=== PATIENT | male | born 2000 | race Caucasian/White ===

== ENCOUNTER 2022-04-04 19:54 | Emergency (ER) | payer BC, SELFPAY ==
[2022-04-04 20:45] VITALS: BP 110/73; PULSE 92; RESP 16; TEMP 37.2; O2SAT 97; BMI 27.2
--- NOTE | 2022-04-04 22:15 | ED_ITS ---
HPI - General Adult General Time Seen by Provider: 22:00 Date Seen: 04/04/22 Chief complaint: Skin/Abscess/Foreign Body Stated complaint: cyst causing pain under arm Time Seen by Provider: 04/04/22 22:12 Source: patient Mode of arrival: ambulatory Limitations: no limitations History of Present Illness HPI narrative: 21-year-old who comes in with swelling under his right arm for the last 4 days. Started as a pimple got progressively bigger. He has not been doing anything for this. He is taking Tylenol and ibuprofen. No fever, chills, nausea, vomiting. Denies any history of diabetes or other medical problems. Exam Narrative: Exam Narrative: General: Well-developed and well-nourished, no acute distress Head: Atraumatic and normocephalic Eyes: Pupils are equal reactive, extraocular motions intact, conjunctiva clear ENT: External nose and ears are normal, posterior pharynx without erythema or exudate Neck: No midline cervical tenderness, full spontaneous range of motion the neck, trachea midline, no adenopathy Heart: Regular rate and rhythm no murmurs or thrills Lungs: Clear to auscultation bilaterally without wheezes or crackles Abdomen: Soft, nontender, nondistended with active bowel sounds Musculoskeletal: No tenderness, deformity, or edema Neurologic: Awake, alert, and oriented x3, no gross focal neurologic deficits, cranial nerves intact as tested Psych: Mood and affect are appropriate Skin: 3 cm area of swelling and induration of the right axilla with erythema tracking to the mid upper arm Const: Vital Signs, click to edit/add: Vital Signs - 24 hr 04/04/22 20:45 Temperature 99.0 F Pulse Rate [Pulse Oximeter] 92 Respiratory Rate 16 Blood Pressure [Le ft Upper Arm] 110/73 Pulse Oximetry 97 Oxygen Delivery Me thod Room Air Documenting provider has reviewed patient's vital signs: yes Course Course Hospital Course: Patient seen and examined, prior records are reviewed. Patient with patient swelling, redness, warmth of the right axilla going to the mid upper arm. No associated systemic symptoms. Symptoms are most consistent with abscess. Vital Signs Vital signs: Initial Vital Signs Temperature 99.0 F 04/04/22 20:45 Temperature Source Temporal Artery Scan 04/04/22 20:45 Pulse Rate 92 04/04/22 20:45 Pulse Rhythm 04/04/22 20:45 Respiratory Rate 16 04/04/22 20:45 Blood Pressure 110/73 04/04/22 20:45 Blood Pressure Mean 85 04/04/22 20:45 Blood Pressure Position Sitting 04/04/22 20:45 Pulse Oximetry 97 04/04/22 20:45 Oxygen Delivery Method 04/04/22 20:45 Vital Signs Temperature 99.0 F 04/04/22 20:45 Pulse Rate 92 04/04/22 20:45 Respiratory Rate 16 04/04/22 20:45 Blood Pressure 110/73 04/04/22 20:45 Pulse Oximetry 97 04/04/22 20:45 Oxygen Delivery Method 04/04/22 20:45 Temperature 99.0 F 04/04/22 20:45 Pulse Rate 92 04/04/22 20:45 Respiratory Rate 16 04/04/22 20:45 Blood Pressure 110/73 04/04/22 20:45 Pulse Oximetry 97 04/04/22 20:45 Oxygen Delivery Method 04/04/22 20:45 Discharge Plan Discharge Clinical Impression: Cellulitis and abscess of upper extremity, Abscess of axilla, right Patient Disposition: Home, Self-Care Condition: Stable Instructions: Abscess Incision and Drainage (DC) Additional Instructions: Remove packing tomorrow and leave open to drain Take antibiotics as prescribed. Tylenol and ibuprofen as needed for pain. You may apply cool packs as desired. Follow-up with Dr. Solitario, general surgery on . The clinic will call you to schedule. Activity Level: No Restrictions Discharge Diet: Regular Stand Alone [facility] Inst[facility] Procedures I/D Type: abscess Site: other (Right axilla) Pre procedure diagnosis: Abscess and cellulitis Post procedure diagnosis: Same Written consent by: patient Site marking: not applicable Verification/time out: correct patient Name of person performing procedure: Isaias Cruz Anesthesia I&D: lidocaine 2% and with Epi Amount of anesthesia used (mls): 4 Side (if applicable): right Technique: incised with #11 blade (Single straight incision with copious purulent drainage, culture sent) Irrigation: No Packing used?: iodoform Estimated blood loss (if any): less than 5mls Conclusion: patient tolerated procedure
[2022-04-04] MEDS: DOXYCYCLINE HYCLATE 100 MG CAPSULE PO (22:49)
[2022-04-04] MEDS: OXYCODONE 5 MG TABLET PO (22:49)
[2022-04-04 23:09] VITALS: BP 110/73; PULSE 92; RESP 16; TEMP 37.2
--- NOTE | 2022-04-04 23:13 | ED.NURSE ---
Wasted Rocephin 1g and 2.1mL Lidocain 1% after med was drawn up d/t allergy. aware. Per Dr. Guzman, hold Rocephin IM. Okay to give Doxy. Instymed Rx for Augmentin cancelled. Dressing applied to wound.
== END 2022-04-04 23:09 | disposition home or self-care (01) ==
PROVIDERS: Emergency Provider Family Medicine
DX: L02.411 Cutaneous abscess of right axilla (principal); L03.112 Cellulitis of left axilla
CPT/HCPCS: 10060; 10061; 87070; 87186; 87205; 99282; 99283; A9270

== ENCOUNTER 2022-04-06 12:51 | Day surgery (SDC) | payer BC, SELFPAY ==
[2022-04-06] VITALS (10 sets, daily range): BP systolic 87–138; BP diastolic 47–91; PULSE 52–70; RESP 10–16; TEMP 36.3–36.8; O2SAT 88–100; BMI 26.3
[2022-04-06] MEDS: LACTATED RINGERS 1000 ML 1,000 ML 100 ML IV (13:00)
[2022-04-06] MEDS: SODIUM CHLORIDE 0.9 % (FLUSH) 10 ML SYRINGE IVF (13:26)
[2022-04-06] MEDS: lidocaine HCL 2 % MULTIDOSE 20 ML VIAL INJECTION (14:21)
[2022-04-06] MEDS: BUPIVACAINE 0.5% 30 ML INJECTION (14:21)
--- NOTE | 2022-04-06 14:38 | PM.GSPRC ---
Operative Note Date of procedure: 04/06/22 Type of Procedure: Irrigation and debridement right axillary abscess Procedure Description: After discussing the risks and benefits of the procedure, the patient signed informed consent.? The operative site was marked and the patient was brought to the operating room and placed on the operating table in supine position.? Care was taken to pad the patient's pressure points.?? The patient was then intubated by anesthesia.?? The operative site was then prepped and draped in the usual sterile fashion.? A time-out was then performed. Local anesthetic was used to infiltrate the surgical field. Evidence on examination of a 1 mm incision. A mosquito was used to open the incision and inspect the underlying cavity. A moderate amount of milky serous fluid was evacuated. The cavity measured 3 cm x 2 cm x 2 cm in size. The incision was then extended a laterally to allow for adequate debridement and drainage. The cavity was gently irrigated with normal saline. All necrotic fat was gently debrided. Hemostasis was assured with pressure and electrocautery. The cavity was then packed with 1 in iodoform and an outer Mepilex dressing applied. On the medial aspect of the axilla was a prominent lymph node. No underlying fluid collection or undrained pocket of fluid appreciated. ? Sterile dressings were then applied. ? The patient was then woken and transported to the recovery area in stable condition. ? Findings: Right axillary abscess. Anesthesia: GETA and local Surgeon: Arlyn Solitario MD Estimated blood loss (mL): 5 Condition: stable Disposition: same day
--- NOTE | 2022-04-06 14:42 | P.GSCN_ITS ---
History of Present Illness Consult details Date Seen: 04/06/22 Consult date: 04/06/22 Narrative: Patient presents for wound follow-up. He was initially seen in the emergency department on 04/04/2022 for a 1 week history of worsening swelling under his right arm. At that time workup demonstrated an abscess, which was incised and drained at bedside. He was also prescribed an antibiotic, doxycycline. Since leaving the emergency department he did remove his packing yesterday. He has continued with an outer dressing. He reports continued severe pain to the right armpit with redness that is now extending down the arm. He has also noticed a new bulge just adjacent to where the abscess was. Denies any fevers or chills. He has had 1 episode similar to this in the past. No history of MRSA but mom does report that she has a history of chronic infections of the armpit. He is otherwise healthy. No history of diabetes. He does vape on a daily basis. Review of Systems Status of ROS: Reports: 10 or more systems reviewed and unremarkable except as noted in History and below [facility] Social History Smoking Status: Never smoker How often do you have a drink containing alcohol: never AUDIT-C Alcohol total score: 0 Non-prescribed substance use: denies use Caffeine: Yes Meds Home Medications and Allergies Allergies Allergy/AdvReac Type Severity Reaction Status Date / Time Penicillins Allergy Unknown Verified 04/06/22 13:06 Sulfa (Sulfonamide Allergy Unknown Verified 04/06/22 13:06 Antibiotics) cephalexin [From Keflex] Allergy Verified 04/06/22 13:06 Exam Narrative: Exam Narrative: General: Alert and oriented, no acute distress Respiratory: Equal breath rise bilaterally, maintained on room air. Clear breath sounds. CV: Regular rhythm rate Extremities: Right axillary erythema and induration, very tender to palpation. There was a small 1 mm opening that looks closed. No active purulent drainage noted at this time. The medial aspect of the axilla is a 2 cm lymph node which is very tender to the touch. Const: Vital Signs, click to edit/add: Vital Signs - 24 hr 04/06/22 13:09 Temperature 98.3 F Pulse Rate 55 L Respiratory Rate 16 Blood Pressure 115/59 L Pulse Oximetry 100 Oxygen Delivery Me thod Room Air Results Labs Labs: All other labs normal. Assessment and Plan Assessment and plan (1) Abscess of axilla, right: Status: Acute Plan Patient is a 21-year-old male with a right axillary abscess status post incision and drainage 2 days earlier. Given the increasing swelling and erythema, as well as evidence of closure at the previous incision site, I am concerned about an undrained infection. Risks and benefits of incision and drainage in the operating room were discussed at length with the patient. All questions and concerns were addressed with patient agreeing to proceed. He is currently on oral doxycycline. He will receive a dose of IV clindamycin preoperatively, recommend that he continue with doxycycline. His culture has grown Staph aureus and is sensitive. -OR for right axillary incision and drainage -continue oral doxycycline -follow-up in clinic next week for wound check
--- NOTE | 2022-04-06 14:55 | W.ANESCHARGE ---
Anesthesia Charges Start Date/Time Anesthesia Start Date: 04/06/22 Anesthesia Start Time: 14:06 Stop Date/Time Anesthesia Stop Date: 04/06/22 Anesthesia Stop Time: 14:53 Summary Emergency: Yes
--- NOTE | 2022-04-06 14:57 | W.ANESCHARGE ---
Anesthesia Charges Start Date/Time Anesthesia Start Date: 04/06/22 Anesthesia Start Time: 14:06 Stop Date/Time Anesthesia Stop Date: 04/06/22 Anesthesia Stop Time: 14:53 Summary Emergency: Yes
== END 2022-04-06 16:12 | disposition home or self-care (01) ==
PROVIDERS: Visit Provider Surgery
PROC: (CPT 10061; principal; 2022-04-06 14:10)
DX: L02.411 Cutaneous abscess of right axilla (principal); B95.61 Methicillin susceptible Staphylococcus aureus infection as the cause of diseases classified elsewhere
CPT/HCPCS: 10061; 400; 99140; J1100; J1885; J2250; J2405; J2704; J3010; J3490; J7120; S0077

== ENCOUNTER 2023-03-08 21:51 | Emergency (ER) | payer BC, SELFPAY ==
[2023-03-08 21:57] VITALS: BP 160/101; PULSE 111; RESP 16; TEMP 37.1; O2SAT 97; BMI 31.2
--- NOTE | 2023-03-08 22:20 | CRLHL7_ITS ---
For Patients: As a result of the Cures Act, medical imaging exams and procedure reports are released immediately into your electronic medical record. You may view this report before your referring provider. If you have questions, please contact your health care provider. INDICATION: Chest pain. TECHNIQUE: Chest radiographs, two views. COMPARISON: None. FINDINGS: Lines/Tubes/Devices: None. Mediastinum: Normal cardiac silhouette. Lungs: No focal consolidation. Pleura: No pleural effusions or pneumothorax. Bones: No acute osseous abnormalities. Upper Abdomen: Unremarkable. IMPRESSION: No acute cardiopulmonary process. Dictated by Roderick Sheets MD @ 03/08/2023 10:43:16 PM (Electronically Signed)
--- NOTE | 2023-03-08 22:30 | ED.CHESTPAIN ---
HPI - Chest Pain General Date Seen: 03/08/23 Chief Complaint: Chest Pain Stated Complaint: Chest tightness, left arm pain Time Seen by Provider: 03/08/23 22:05 Source: patient Mode of arrival: ambulatory Limitations: no limitations History of Present Illness HPI narrative: Patient is a 22-year-old male presenting emergency department for chest pain that radiates to his left arm. The symptoms have been intermittent for the past month and had a normal stress test 2 weeks ago. He states they are worse with exertion. Does state he has been very active in using his upper body quite a bit. Denies shortness of breath. No increase in pain with deep breaths. Denies fevers, chills, weakness, numbness, diarrhea, constipation, headache, vision changes. States this pain is sharp in nature and has been worse over the past few days making it hard to sleep. Has not taken anything for the pain. Related Data Home Medications Medication Instructions Recorded Confirmed melatonin 3 mg capsule 3 mg PO DAILY 03/08/23 03/08/23 Allergies Allergy/AdvReac Type Severity Reaction Status Date / Time Penicillins Allergy Unknown Verified 04/12/22 13:58 Sulfa (Sulfonamide Allergy Unknown Verified 04/12/22 13:58 Antibiotics) cephalexin [From Keflex] Allergy Verified 04/12/22 13:58 Review of Systems Status of ROS Reports: 10 or more systems reviewed and unremarkable except as noted in History and below [facility] Social History Smoking Status: Never smoker How often do you have a drink containing alcohol: never AUDIT-C Alcohol total score: 0 Non-prescribed substance use: denies use Caffeine: Yes Exam Narrative Exam Narrative: Const: Well-nourished, Well-developed, in mild distress Eyes: PERRL, no conjunctival injection, and symmetrical lids HENT: Atraumatic external nose and ears. Moist mucous membranes. Neck: Symmetric, trachea midline, No thyromegaly. CVS: RRR, No murmurs or gallops. Peripheral pulses 2+ and equal in all extremities RESP: Unlabored respiratory effort. Clear to auscultation bilaterally. GI: Nontender/Nondistended, No rebound or guarding. MSK:Extremities w/o deformity, Normal Active ROM Skin: Warm, Dry. No rashes or lesions. Neuro: Normal Muscle tone, No focal neurological deficits. Psych: Awake, Alert, & Oriented x3. Appropriate mood and affect. Const Vital Signs, click to edit/add: Vital Signs - 24 hr 03/08/23 21:57 Temperature 98.8 F Pulse Rate [Pulse Oximeter] 111 H Respiratory Rate 16 Blood Pressure [Right Upper Arm] 160/101 H Pulse Oximetry 97 Oxygen Delivery Method Room Air Course Vital Signs Vital signs: Initial Vital Signs Temperature 98.8 F 03/08/23 21:57 Temperature Source Temporal Artery Scan 03/08/23 21:57 Pulse Rate 111 H 03/08/23 21:57 Respiratory Rate 16 03/08/23 21:57 Blood Pressure 160/101 H 03/08/23 21:57 Blood Pressure Mean 120 H 03/08/23 21:57 Blood Pressure Position Sitting 03/08/23 21:57 Pulse Oximetry 97 03/08/23 21:57 Oxygen Delivery Method Room Air 03/08/23 21:57 Vital Signs Temperature 98.8 F 03/08/23 21:57 Pulse Rate 111 H 03/08/23 21:57 Respiratory Rate 16 03/08/23 21:57 Blood Pressure 160/101 H 03/08/23 21:57 Pulse Oximetry 97 03/08/23 21:57 Oxygen Delivery Method Room Air 03/08/23 21:57 Temperature 98.8 F 03/08/23 21:57 Pulse Rate 111 H 03/08/23 21:57 Respiratory Rate 16 03/08/23 21:57 Blood Pressure 160/101 H 03/08/23 21:57 Pulse Oximetry 97 03/08/23 21:57 Oxygen Delivery Method Room Air 03/08/23 21:57 MDM - Chest Pain MDM Narrative Medical decision making narrative: Patient is a 22-year-old male presenting for chest pain radiates to his left arm. He recently had a stress test 2 weeks ago that was normal. His any just had a stress test is very likely is suffering from ACS at this time we will do an EKG, troponin, CBC, BMP. Chest x-ray is ordered to confer signs of pneumonia or pneumothorax. On exam his chest decided to palpation and I pressed on the left side of his chest he says that reproduce the pain exactly. This makes me believe is most likely a musculoskeletal issue of the chest wall. EKG showed some mild tachycardia but otherwise no concerning findings. Troponin is normal and I not believe is necessary to repeat this. CBC BMP showed no concerning findings. He is feeling better after Toradol. He has primary care follow-up in 5 days from when she would talk about his chest pain, hypertension, tachycardia. I believe the hypertension tachycardia most likely from anxiety. He is doing well be discharged home. He is agreeable to this plan Lab Data Labs: Lab Results 03/08/23 03/08/23 Range/Units 22:19 22:30 WBC 5.48 (4.50-11.00) K/uL RBC 4.79 (4.30-5.90) m/uL Hgb 14.5 (13.5-17.5) gm/dL Hct 42.2 (37.0-53.0) % MCV 88 (80-100) fL MCH 30 (26-34) pg MCHC 34 (32-36) gm/dL RDW Coeff of Meme 11.7 (11.5-15.5) % Plt Count 271 (140-440) K/uL Neut % (Auto) 66.8 (42.0-72.0) % Lymph % (Auto) 25.9 (20-44) % [place] % (Auto) 5.7 (0.0-11.0) % Eos % (Auto) 0.5 (0.0-7.0) % Baso % (Auto) 0.4 (0.0-3.0) % Neut # (Auto) 3.66 (1.7-7.0) K/uL Lymph # (Auto) 1.42 (0.90-2.90) K/uL [place] # (Auto) 0.30 (0.00-0.90) K/UL Eos # (Auto) 0.03 (0.00-0.50) K/uL Baso # (Auto) 0.02 (0.00-0.30) K/uL Abs Immat Gran (auto) 0.04 (0.00-0.30) K/uL Imm/Tot Granulo (auto) 0.7 % Sodium 138 (135-149) mmol/L Potassium 4.1 (3.6-5.1) mmol/L Chloride 105 (96-114) mmol/L Carbon Dioxide 26 (20-32) mmol/L Anion Gap 7 (7-15) mEq/L BUN 16 (5-24) mg/dL Creatinine 0.9 (0.5-1.5) mg/dL Estimated Creat Clear 143.70 Estimated GFR 125 ml/min Glucose 103 (60-115) mg/dL Calcium 9.5 (8.4-10.6) mg/dL POC Troponin I 0.00 L (0.01-0.04) ng/ml ECG Data Attestation: I personally reviewed and interpreted this ECG as follows: Interpretation: Sinus tachycardia rate 104 beats per minute, normal intervals, normal axis, no ST or T-wave abnormalities Discharge Plan Discharge Clinical Impression: Chest wall muscle strain Qualifiers: Encounter type: initial encounter Qualified Code(s): S29.011A - Strain of muscle and tendon of front wall of thorax, initial encounter Patient Disposition: Home, Self-Care Condition: Improved Instructions: Chest Wall Pain (ED) Additional Instructions: Keep your appointment for your primary care provider that is 5 days from now. Return to emergency department for new or worsening symptoms. Take Tylenol and ibuprofen for pain. Ibuprofen may help more as it helps as an anti-inflammatory Prescriptions: No Action melatonin 3 mg capsule 3 mg PO DAILY Follow Up/Referrals: Provider,Not a Local [Primary Care Provider] - Stand Alone Forms: [employer] Info Instructions
[2023-03-08 22:39] LABS: Basophils Absolute Auto 0.02 K/uL (0.00-0.30); Basophils Percent Auto 0.4 % (0.0-3.0); Eosinophils Absolute Auto 0.03 K/uL (0.00-0.50); Eosinophils Percent Auto 0.5 % (0.0-7.0); Hematocrit 42.2 % (37.0-53.0); Hemoglobin* 14.5 gm/dL (13.5-17.5); Immature Granulocytes Abs Auto 0.04 K/uL (0.00-0.30); Immature Granulocytes Pct Auto 0.7 %; Lymphocytes Absolute Auto 1.42 K/uL (0.90-2.90); Lymphocytes Percent Auto 25.9 % (20-44); Mean Corpuscular HGB Conc 34 gm/dL (32-36); Mean Corpuscular Hemoglobin 30 pg (26-34); Mean Corpuscular Volume 88 fL (80-100); Monocytes Percent Auto 5.7 % (0.0-11.0); Neutrophils Absolute Auto 3.66 K/uL (1.7-7.0); Neutrophils Percent Auto 66.8 % (42.0-72.0); Platelet Count* 271 K/uL (140-440); RDW Coefficient of Variation % 11.7 % (11.5-15.5); Red Blood Count 4.79 m/uL (4.30-5.90); White Blood Count* 5.48 K/uL (4.50-11.00)
[2023-03-08 22:48] LABS: Chloride* 105 mmol/L (96-114); Potassium* 4.1 mmol/L (3.6-5.1); Sodium* 138 mmol/L (135-149)
[2023-03-08] MEDS: KETOROLAC 30 MG/ML inj IM (22:50)
[2023-03-08 22:51] LABS: Anion Gap 7 mEq/L (7-15); Blood Urea Nitrogen* 16 mg/dL (5-24); Carbon Dioxide* 26 mmol/L (20-32); Creatinine* 0.9 mg/dL (0.5-1.5); Estimated Glomerular Filt Rate 125 ml/min; Glucose* 103 mg/dL (60-115)
[2023-03-08 22:52] LABS: Calcium* 9.5 mg/dL (8.4-10.6); Slide Review Reflex No
[2023-03-08 23:33] VITALS: BP 133/84; PULSE 85; RESP 16
== END 2023-03-08 23:34 | disposition home or self-care (01) ==
PROVIDERS: Emergency Provider Student in an Organized Health Care Education/Training Program
DX: S29.011A Strain of muscle and tendon of front wall of thorax, initial encounter (principal)
CPT/HCPCS: 36415; 71046; 80048; 84484; 85025; 93005; 96372; 99283; 99284; 99285; J1885

== ENCOUNTER 2023-05-01 10:00 | Outpatient (RCR) | payer BC, SELFPAY | END 2023-06-05 10:33 | disposition home or self-care (01) | PROVIDERS: Visit Provider Family Medicine | DX: M25.511 Pain in right shoulder (principal); M25.512 Pain in left shoulder; G89.29 Other chronic pain; Z74.09 Other reduced mobility; R29.898 Other symptoms and signs involving the musculoskeletal system; Z51.89 Encounter for other specified aftercare | CPT/HCPCS: 97110; 97140; 97161 ==

== ENCOUNTER 2023-08-06 11:52 | Outpatient (CLI) | payer BC, SELFPAY ==
--- NOTE | 2023-08-06 13:30 | W.ANESCHARGE ---
Anesthesia Charges Start Date/Time Anesthesia Start Date: 08/06/23 Anesthesia Start Time: 12:42 Stop Date/Time Anesthesia Stop Date: 08/06/23 Anesthesia Stop Time: 13:25
--- NOTE | 2023-08-06 13:35 | W.ANESCHARGE ---
Anesthesia Charges Start Date/Time Anesthesia Start Date: 08/06/23 Anesthesia Start Time: 12:42 Stop Date/Time Anesthesia Stop Date: 08/06/23 Anesthesia Stop Time: 13:25
== END 2023-08-06 11:53 | disposition home or self-care (01) ==
LOC: OP CLINIC 11:53
PROVIDERS: PCP Student in an Organized Health Care Education/Training Program; Visit Provider Internal Medicine Gastroenterology
DX: K92.1 Melena (principal); R19.7 Diarrhea, unspecified; R10.84 Generalized abdominal pain; R10.13 Epigastric pain; R19.8 Other specified symptoms and signs involving the digestive system and abdomen
CPT/HCPCS: 00813; 43239; 45380; 88305; 88342; J2250; J2704; J3010; J3490

== ENCOUNTER 2023-09-01 08:43 | Emergency (ER) | payer BC, SELFPAY ==
[2023-09-01 08:54] VITALS: BP 170/101; PULSE 78; RESP 18; TEMP 37.3; O2SAT 96; BMI 35.3
--- NOTE | 2023-09-01 08:57 | ED_ITS ---
HPI - General Adult General Chief complaint: Allergic Reaction Stated complaint: poss allergic reaction to antibiotic Time Seen by Provider: 09/01/23 08:47 History of Present Illness HPI narrative: Patient is a 22-year-old male who had rhinoplasty about 3 days ago in the [facility] at a surgery center. He had some donor cartilage used apparently for deviated septum. This was the 2nd nasal surgery. He has multiple allergies to medications, last night he felt he was hot, could not sleep, had some rash in his upper chest in his biceps area bilaterally, no shortness of breath, no throat swelling or tongue swelling. He is on antibiotic his mom is going to call him with the name of the antibiotic. He was to be on this for a week. He has taken 3 days worth. Presents to ER for assessment. He is not short of breath, no chest pain, no urticaria noted. He has been generally healthy. He is currently on oxycodone as needed and the antibiotic. Related Data Home Medications Medication Instructions Recorded Confirmed melatonin 3 mg capsule 3 mg PO DAILY 03/08/23 03/08/23 Previous Rx's Medication Instructions Recorded azithromycin 500 mg tablet 500 mg PO DAILY 5 days #5 tabs 09/01/23 (Zithromax) Allergies Allergy/AdvReac Type Severity Reaction Status Date / Time Penicillins Allergy Unknown Verified 08/06/23 12:07 Sulfa (Sulfonamide Allergy Unknown Verified 08/06/23 12:07 Antibiotics) bismuth subsalicylate Allergy Hives Verified 08/06/23 12:07 [From Pepto-Bismol] cephalexin [From Keflex] Allergy Verified 08/06/23 12:07 Review of Systems Status of ROS: Reports: 6 or more systems reviewed and unremarkable except as noted in History and below [facility] Social History Smoking Status: Never smoker Do you use any of these nicotine containing products: None Second hand tobacco smoke exposure: No How often do you have a drink containing alcohol: never AUDIT-C Alcohol total score: 0 Non-prescribed substance use: denies use Caffeine: Yes service: No Exam Narrative: Exam Narrative: Objective: In general patient is in no apparent distress he has got a swollen nose consistent with postop status, is got a nasal sling on. He is alert orient x3, noncyanotic Mouth clear Neck is supple Nose shows some crusty blood, no active bleeding. No evidence of cellulitis around his nose Lungs are clear, pulse regular, heart regular Extremities show good perfusion neurologic nonfocal Skin shows some redness over his upper chest and on his biceps area laterally bilaterally, no urticaria noted, good peripheral perfusion. Const: Vital Signs, click to edit/add: Vital Signs - 24 hr 09/01/23 08:54 09/01/23 09:10 09/01/23 09:31 Temperature 99.2 F Pulse Rate 80 Pulse Rate [Pulse Oximeter] 78 Respiratory Rate 18 16 Blood Pressure 141/90 H Blood Pressure [Ri ght Upper Arm] 170/101 H Pulse Oximetry 96 98 96 Oxygen Delivery Me thod Room Air Course Vital Signs Vital signs: Initial Vital Signs Temperature 99.2 F 09/01/23 08:54 Temperature Source Temporal Artery Scan 09/01/23 08:54 Pulse Rate 78 09/01/23 08:54 Pulse Rhythm Regular 09/01/23 08:54 Respiratory Rate 18 09/01/23 08:54 Blood Pressure 170/101 H 09/01/23 08:54 Blood Pressure Mean 124 H 09/01/23 08:54 Blood Pressure Position Supine 09/01/23 08:54 Pulse Oximetry 96 09/01/23 08:54 Oxygen Delivery Method Room Air 09/01/23 08:54 Vital Signs Temperature 99.2 F 09/01/23 08:54 Pulse Rate 78 09/01/23 08:54 Respiratory Rate 18 09/01/23 08:54 Blood Pressure 170/101 H 09/01/23 08:54 Pulse Oximetry 96 09/01/23 08:54 Oxygen Delivery Method Room Air 09/01/23 08:54 Temperature 99.2 F 09/01/23 08:54 Pulse Rate 80 09/01/23 09:31 Respiratory Rate 16 09/01/23 09:31 Blood Pressure 141/90 H 09/01/23 09:31 Pulse Oximetry 96 09/01/23 09:31 Oxygen Delivery Method Room Air 09/01/23 08:54 Medications Administered Medications: Discontinued Medications Generic Name Dose Route Start Last Admin Trade Name Freq PRN Reason Stop Dose Admin Diphenhydramine HCl 50 mg 09/01/23 08:56 09/01/23 09:15 Diphenhydramine 50 Mg/Ml Inj IVP 09/01/23 08:57 50 mg ONCE ONE Administration Sodium Chloride 1,000 mls @ 6,000 mls/hr 09/01/23 09:00 09/01/23 09:14 0.9 % Sodium Chloride 1000 Ml IV 09/01/23 09:09 2,000 mls/hr .Q10M ZOHREH Administration Medical Decision Making MDM Narrative Medical decision making narrative: [age] year white male 3 days status post rhinoplasty for septal deviation, with difficulty sleeping last night a feeling of being warm, redness over his chest and upper arms. Concern would be for an allergic reaction given his history of allergy to the cillin family as well as Keflex and sulfa. Will check what antibiotic he is on. Probably stop this for a day or 2 and then likely will need to restart to a different antibiotic for completion of his course. Will given Benadryl IV now. He does appear to have any significant process occurring in terms of anaphylaxis. Will observe for period of time in the ED as well. Will also give him IV fluid, IV Benadryl and check his electrolytes and CBC. Addendum 9:47 a.m. the patient's lab studies look reassuring, white count and hemoglobin are reassuring, electrolytes are normal. Patient if has had no worsening of his symptoms. I think he can continue on Benadryl at home, stop the doxycycline, will have him start Zithromax tomorrow if he is doing better and he is not feeling ill. If he still feeling ill he should contact his regular doctor ENT physician. Or return to the ED if needed. He was comfortable this plan. He does have a ride home. I would rather him continue Benadryl 25-50 t.i.d. over the next few days. Lab Data Labs: Lab Results 09/01/23 Range/Units 09:10 WBC 5.16 (4.50-11.00) K/uL RBC 4.72 (4.30-5.90) m/uL Hgb 14.4 (13.5-17.5) gm/dL Hct 42.2 (37.0-53.0) % MCV 89 (80-100) fL MCH 31 (26-34) pg MCHC 34 (32-36) gm/dL RDW Coeff of Meme 11.8 (11.5-15.5) % Plt Count 250 (140-440) K/uL Neut % (Auto) 56.9 (42.0-72.0) % Lymph % (Auto) 32.8 (20-44) % [place] % (Auto) 8.3 (0.0-11.0) % Eos % (Auto) 1.6 (0.0-7.0) % Baso % (Auto) 0.4 (0.0-3.0) % Neut # (Auto) 2.94 (1.7-7.0) K/uL Lymph # (Auto) 1.69 (0.90-2.90) K/uL [place] # (Auto) 0.40 (0.00-0.90) K/UL Eos # (Auto) 0.08 (0.00-0.50) K/uL Baso # (Auto) 0.02 (0.00-0.30) K/uL Abs Immat Gran (auto) 0.00 (0.00-0.30) K/uL Imm/Tot Granulo (auto) 0.0 % Sodium 138 (135-149) mmol/L Potassium 3.9 (3.6-5.1) mmol/L Chloride 105 (96-114) mmol/L Carbon Dioxide 29 (20-32) mmol/L Anion Gap 4 L (7-15) mEq/L BUN 9 (5-24) mg/dL Creatinine 0.7 (0.5-1.5) mg/dL Estimated Creat Clear 184.76 Estimated GFR 135 ml/min Glucose 101 (60-115) mg/dL Calcium 9.7 (8.4-10.6) mg/dL Discharge Plan Discharge Clinical Impression: Allergic reaction, Status post rhinoplasty Patient Disposition: Home w/ Parent or Adult Condition: Improved Additional Instructions: Light activity, use a nasal sling as needed, stop the doxycycline. Would wait 1 day and then start Zithromax 500 mg daily for 5 days. Adequate fluid intake, update your ENT as needed, return to the ED if problems concerns difficulty with mouth swelling or breathing. Take Benadryl 25-50 mg 3 times a day for the next 3-5 days. Activity Level: Light activity Discharge Diet: Regular Prescriptions: New azithromycin [Zithromax] 500 mg tablet 500 mg PO DAILY 5 Days Qty: 5 0RF No Action melatonin 3 mg capsule 3 mg PO DAILY Follow Up/Referrals: Coco Xie PA-C [Primary Care Provider] - Stand Alone Forms: WISE s.r.lth Info Instructions
[2023-09-01 09:10] VITALS: O2SAT 98
[2023-09-01] MEDS: 0.9 % SODIUM CHLORIDE 1000 ml 1,000 ML 2000 ML IV (09:14)
[2023-09-01] MEDS: diphenhydrAMINE 50 MG/ML inj IVP (09:15)
[2023-09-01 09:24] LABS: Basophils Absolute Auto 0.02 K/uL (0.00-0.30); Basophils Percent Auto 0.4 % (0.0-3.0); Eosinophils Absolute Auto 0.08 K/uL (0.00-0.50); Eosinophils Percent Auto 1.6 % (0.0-7.0); Hematocrit 42.2 % (37.0-53.0); Hemoglobin* 14.4 gm/dL (13.5-17.5); Lymphocytes Absolute Auto 1.69 K/uL (0.90-2.90); Lymphocytes Percent Auto 32.8 % (20-44); Mean Corpuscular HGB Conc 34 gm/dL (32-36); Mean Corpuscular Hemoglobin 31 pg (26-34); Mean Corpuscular Volume 89 fL (80-100); Monocytes Percent Auto 8.3 % (0.0-11.0); Neutrophils Absolute Auto 2.94 K/uL (1.7-7.0); Neutrophils Percent Auto 56.9 % (42.0-72.0); Platelet Count* 250 K/uL (140-440); RDW Coefficient of Variation % 11.8 % (11.5-15.5); Red Blood Count 4.72 m/uL (4.30-5.90); White Blood Count* 5.16 K/uL (4.50-11.00)
[2023-09-01 09:27] LABS: Slide Review Reflex No
[2023-09-01 09:31] VITALS: BP 141/90; PULSE 80; RESP 16; O2SAT 96
[2023-09-01 09:38] LABS: Chloride* 105 mmol/L (96-114); Potassium* 3.9 mmol/L (3.6-5.1); Sodium* 138 mmol/L (135-149)
[2023-09-01 09:41] LABS: Anion Gap 4 mEq/L (7-15); Blood Urea Nitrogen* 9 mg/dL (5-24); Carbon Dioxide* 29 mmol/L (20-32); Creatinine* 0.7 mg/dL (0.5-1.5); Est. Creatinine Clearance* 184.76; Estimated Glomerular Filt Rate 135 ml/min; Glucose* 101 mg/dL (60-115)
[2023-09-01 09:42] LABS: Calcium* 9.7 mg/dL (8.4-10.6)
[2023-09-01 09:45] VITALS: PULSE 67; O2SAT 95
[2023-09-01 10:09] VITALS: BP 170/101; PULSE 78; RESP 16; TEMP 37.3
== END 2023-09-01 10:10 | disposition home or self-care (01) ==
PROVIDERS: Emergency Provider Family Medicine; PCP Student in an Organized Health Care Education/Training Program
DX: R21 Rash and other nonspecific skin eruption (principal); T36.0X5A Adverse effect of penicillins, initial encounter
CPT/HCPCS: 36415; 80048; 85025; 94761; 96374; 99283; 99284; J1200; J7030